=== PATIENT | male | born 1985 | race Caucasian/White ===

== ENCOUNTER 2016-10-21 08:38 | Emergency (ER) | payer SELFPAY ==
[~2016-10-21] VITALS: Ht 170.2 cm; Wt 81.2 kg
[2016-10-21 08:52] VITALS: Ht 170.2 cm; Wt 81.2 kg
[2016-10-21] MEDS ORDERED: ACETAMINOPHEN 500 MG TAB PO STA (09:54)
[2016-10-21] MEDS ORDERED: NAPROXEN 500 MG TAB PO STA (09:54)
[2016-10-21] MEDS ORDERED: AMOXICILLIN 500 MG CAP PO STA (09:57)
[2016-10-21] MEDS ORDERED: ACET325T33 PO (09:59)
[2016-10-21] MEDS ORDERED: AMO500 PO (09:59)
[2016-10-21] MEDS ORDERED: NAPR-260 PO (09:59)
--- NOTE | 2016-10-21 10:03 | ERD ---
ER Documentation Chief Complaint Date/Time DATE: 10/21/16 TIME: 10:01 Chief Complaint sore throat,derian earache back pain. HPI This is a 31-year-old male presenting to the emergency room complaining of fever , sore throat and bilateral ear pain for the past 4 days. Patient rates the pain in his throat 7 out of 10. He denies significant cough, nausea, vomiting, diarrhea. Patient has not taken any medications for this ROS All systems reviewed and are negative except as per history of present illness. Medications Home Meds Active Scripts Acetaminophen* (Tylenol*) 325 Mg Tablet, 2 TAB PO Q4 Y for PAIN AND OR ELEVATED TEMP, #30 TAB Prov:JORDYN MOELLER PA-C 10/21/16 Naproxen* (Naprosyn*) 500 Mg Tablet, 500 MG PO BID Y for PAIN AND/OR INFLAMMATION, #30 TAB Prov:JORDYN MOELLER PA-C 10/21/16 Amoxicillin* (Amoxicillin*) 500 Mg Cap, 500 MG PO BID for 10 Days, CAP Prov:JORDYN MOELLER PA-C 10/21/16 Allergies Allergies: Coded Allergies: No Known Allergy (Unverified , 10/21/16) PMhx/Soc Medical and Surgical Hx: pt denies Medical Hx, pt denies Surgical Hx Hx Alcohol Use: No Hx Substance Use: No Hx Tobacco Use: No Smoking Status: Never smoker Physical Exam Vitals Vital Signs Date Time Temp Pulse Resp B/P Pulse Ox O2 Delivery O2 Flow Rate FiO2 10/21/16 08:52 100.1 109 18 123/83 98 Physical Exam GENERAL: well-developed/well-nourished, in no apparent distress, non-toxic appearing HEAD: NC/AT, no swelling noted in frontal or maxillary areas EARS: Left tympanic membrane is intact without erythema or effusion, right membrane had mild erythema with good cone of light NARES: nares patent THROAT: oropharynx erythematous without exudates, no tonsil enlargement, post nasal drip EYES: Conjunctiva normal NECK: Supple, no lymphadenopathy PULM: CTA bilaterally, no rales, rhonchi, or wheezing heard CV: Normal S1S2, RRR, good capillary refill GI: Soft, non-distended, normal bowel sounds, non-tender BACK: No midline tenderness, no masses EXT No clubbing, cyanosis, or edema NEURO: Alert and Orientated SKIN: Intact, normal turgor PSYCH: Normal mood and mentation Results 24 hrs Current Medications Medications (Trade) Dose Ordered Sig/Jorge Luis Route PRN Reason Start Time Stop Time Status Last Admin Dose Admin Naproxen (Naprosyn) 500 mg ONCE STAT PO 10/21/16 09:54 2 09:57 DC Acetaminophen (Tylenol Tab) 1,000 mg ONCE STAT PO 10/21/16 09:54 10/21/16 09:57 DC Amoxicillin (Amoxicillin) 500 mg ONCE STAT PO 10/21/16 09:57 10/21/16 09:58 DC Procedures/MDM This is a 31-year-old male presenting to the emergency room mildly febrile with a sore throat. On examination patient oropharynx was erythematous with tonsillar exudates and mild tonsillar enlargement on the left. Patient did not have any lymphadenopathy. Patient presented with fever and absent cough. According to center's criteria he had 3 out of 4 therefore he will be treated empirically for strep pharyngitis outpatient. In the ED patient was given naproxen, Tylenol and first dose of amoxicillin. Patient's fever trend downward and he had improvement in pain. Prescription for naproxen, Tylenol and amoxicillin was provided. Patient's airways are intact, he had no evidence of respiratory distress, no evidence of Aron's angina, retropharyngeal abscess , peritonsillar abscess or bacteremia. Patient stable for discharge to follow- up with primary care physician. Discussed return to the ER for any worsening signs or symptoms. He understands and agrees with plan Departure Diagnosis: Primary Impression: Pharyngitis Pharyngitis/tonsillitis etiology: unspecified etiology Qualified Code: J02.9 - Pharyngitis, unspecified etiology Additional Impression: Fever Fever type: unspecified Qualified Code: R50.9 - Fever, unspecified fever cause Condition: Stable Patient Instructions: Fever Control (Adult), Pharyngitis, Strep (Presumed) Referrals: [facility] Additional Instructions: [place] toda la medicina terrie y guerda se le indic. Regrese a estas instalaciones si no se mejora guerda esperbamos o guerda le dijimos. Visite a manzano alejo mcrae para un EXAMEN.Regrese a estas instalaciones si no se mejora guerda esperbamos o guerda le dijimos. JORDYN MOELLER PA-C Oct 21, 2016 10:03
== END 2016-10-21 10:16 | disposition home or self-care (01) ==
LOC: FTE 08:38
DX: J02.9 Acute pharyngitis, unspecified (principal); R50.9 Fever, unspecified
CPT/HCPCS: 99283